=== PATIENT | female | born 2000 | race Two or more races ===

== ENCOUNTER 2023-02-20 11:29 | Emergency (ER) | payer OTHER ==
[~2023-02-20] VITALS: Ht 152.4 cm; Wt 112.5 kg
== END 2023-02-20 16:22 | disposition home or self-care (01) ==
LOC: ER 11:29
DX: S93.504A Unspecified sprain of right lesser toe(s), initial encounter (principal); X58.XXXA Exposure to other specified factors, initial encounter; Y93.89 Activity, other specified; Y92.89 Other specified places as the place of occurrence of the external cause; Y99.9 Unspecified external cause status; M77.31 Calcaneal spur, right foot

== ENCOUNTER 2024-03-27 10:34 | Emergency (ER) | payer OTHER ==
[~2024-03-27] VITALS: Ht 152.4 cm; Wt 114.3 kg
[2024-03-27] MEDS ORDERED: ACETAMINOPHEN 500 MG GEL..CAP PO ONE (11:29)
[2024-03-27] MEDS ORDERED: ACETAMINOPHEN 500 MG GEL..CAP PO STA (11:38)
[2024-03-27] MEDS ORDERED: GUAIFENESIN 200 MG/10 ML BLIST.PACK PO STA (11:38)
[2024-03-27] MEDS ORDERED: KETOROLAC TROMETHAMINE 15 MG VIAL IM STA (11:38)
[2024-03-27] MEDS ORDERED: CETIRIZINE HCL 5 MG/5 ML ML PO STA (11:39)
[2024-03-27] MEDS ORDERED: GUAIFENESIN 200 MG/10 ML BLIST.PACK PO ONE (12:00)
[2024-03-27] MEDS ORDERED: KETOROLAC TROMETHAMINE 30 MG VIAL ONE (12:00)
[2024-03-27] MEDS ORDERED: CETIRIZINE HCL 5MG/5ML BLIST.PACK PO ONE (12:00)
[2024-03-27 12:31] LABS: HEMATOCRIT 37.2 % (36.0-45.00); HEMOGLOBIN 12.3 g/dL (12.0-15.00); MEAN CELL VOLUME 75.9 fL (80.00-100.00); MEAN CORPUSCULAR HEMOGLOBIN 25.1 pg (27.00-32.0); MEAN CORPUSCULAR HGB CONC 33.1 g/dl (32.0-36.0); PLATELET COUNT 272 K/uL (150-450)
[2024-03-27] MEDS ORDERED: MUCINEX DM ER1 EAC1 PO (13:27)
[2024-03-27] MEDS ORDERED: ACETAMINOPHEN500 M1 PO (13:27)
[2024-03-27] MEDS ORDERED: OSEL75CA PO (13:27)
[2024-03-27] MEDS ORDERED: ZYRTEC10 MG PO (13:27)
[2024-03-27] MEDS ORDERED: PROAIR RESPICL90 MCG IH (13:32)
== END 2024-03-27 14:33 | disposition home or self-care (01) ==
LOC: ER 10:36
PROVIDERS: General Practice
DX: J10.1 Influenza due to other identified influenza virus with other respiratory manifestations (principal); J45.909 Unspecified asthma, uncomplicated; Z20.822 Contact with and (suspected) exposure to COVID-19
CPT/HCPCS: 96372; 99282; J1885